=== PATIENT | female | born 1985 | race African-American/Black ===

== ENCOUNTER → 2020-01-29 | Outpatient (CLI) | payer OTHER ==
[~2020-01-29] MED LIST: MELO7.5T3 PO; TIZA4CAP PO; ULTR50TA PO; [UNRECOGNIZED DRUG - CODE] PO
--- NOTE | 2020-02-18 11:44 | REP ---
NECK/THYROID ULTRASOUND: HISTORY: Neck swelling. TECHNIQUE: Real time, rivera scale and color evaluation using linear high frequency and curved array transducers. FINDINGS: The thyroid gland is normal in contour, size and parenchymal echotexture without nodule or cystic changes. The right thyroid lobe measures 4.3 x 1.5 x 1.5 cm. The left thyroid lobe measures 3.8 x 1.5 x 1.3 cm. The isthmus measures 4.2 mm in width. A few scattered mildly prominent right-sided cervical chain lymph nodes are identified which appear normal and demonstrate central fatty hilum and normal vascularity. The lymph nodes measure 14 x 3 x 8 mm, 23 x 3 x 6 mm. Left-sided normal appearing lymph nodes are also identified measuring 12 x 4 x 6 mm and 18 x 5 x 13 mm. IMPRESSION: 1. Normal thyroid gland. 2. Normal mildly prominent-appearing bilateral cervical chain lymph nodes. MTDD
== END ==
LOC: M RAD 10:57
PROVIDERS: ATTEND Physician Assistant Medical
DX: R22.1 Localized swelling, mass and lump, neck (principal)

== ENCOUNTER 2021-03-28 10:14 | Emergency (ER) | payer OTHER ==
[~2021-03-28] VITALS: Ht 160 cm; Wt 75.7 kg
--- OUTSIDE RECORDS SUMMARY | 2021-03-28 10:20 | CCD ---
Author Author [facility] Organization [facility] Address Unknown Phone Unavailable Support Name Relationship Address Phone [facility] Next Of Kin Unknown Unavailable RE Next Of Kin Unknown Unavailable [facility] Next Of Kin [address] [place] [address] [address] Next Of Kin [address] [place], [place] [id number] [place] Next Of Kin Unknown Unavailable Re-disclosure Warning The records that you are about to access may contain information from federally-assisted alcohol or drug abuse programs. If such information is present, then the following federally mandated warning applies: This information has been disclosed to you from records protected by federal confidentiality rules (42 CFR part 2). The federal rules prohibit you from making any further disclosure of this information unless further disclosure is expressly permitted by the written consent of the person to whom it pertains or as otherwise permitted by 42 CFR part 2. A general authorization for the release of medical or other information is NOT sufficient for this purpose. The Federal rules restrict any use of the information to criminally investigate or prosecute any alcohol or drug abuse patient.The records that you are about to access may contain highly sensitive health information, the redisclosure of which is protected by Article 27-F of the [facility] Public Health law. If you continue you may have access to information: Regarding HIV / AIDS; Provided by facilities licensed or operated by the [facility] Office of Mental Health; or Provided by the [facility] Office for People With Developmental Disabilities. If such information is present, then the following [facility] mandated warning applies: This information has been disclosed to you from confidential records which are protected by state law. State law prohibits you from making any further disclosure of this information without the specific written consent of the person to whom it pertains, or as otherwise permitted by law. Any unauthorized further disclosure in violation of state law may result in a fine or detention sentence or both. A general authorization for the release of medical or other information is NOT sufficient authorization for further disc losure. Immunizations Vaccine Date Status Description Data Source(s) COVID-19 VACCINE Moderna 08/31/2020 12:00:00 AM EDT completed [facility] Vaccine Series Complete: YESThis Data wa s Submitted to [facility] Via [employer]. COVID-19 VACCINE Moderna 08/03/2020 12:00:00 AM EST completed [facility] Vaccine Series Complete: NOThis Data was Submitted to [facility] Via [employer]. Medications No Information Insurance Providers Payer name Policy type / Coverage type Policy ID Covered green party ID Covered green party's relationship to is[place] Policy [place] Information [employer] [place] O [id number] S [id number] [employer] [place] CCN [id number] SP [id number] 78 'S ADMINISTRATION [id number] SP [id number] ACTIVE DUTY [id number] SP [id number] SELF PAY UNAVAILABLE SP UNAVAILA BLE Problems, Conditions, and Diagnoses No Information Surgeries/Procedures No Information Results ID Date Data Source [id number] 07/14/2020 11:31:00 AM EST [facility] FASTING: NOReceived: 07/14/2020 at 04:43 :00 QPT: [facility], [facility] [address] , [address] [place], [address], Jarred Thurston MD Name Value Range Interpretation Code Description Data Justine rce(s) Supporting Document(s) Varicella zoster virus IgG Ab [Units/volume] in Serum by Immunoassay 656.80 index Normal (applies to non-numeric results) [facility] Index Interpretatio n --------- <135.00 Negative - Antibody not detected 135.00 - 164.99 Equivocal > or = 165.00 Positive - Antibody detected A positive result indicates that the patient has antibody to VZV but does not differentiate between an active or past infection. The clinical d iagnosis must be interpreted in conjunction with the clinical signs and symptoms of the patient. This assay reliably measures immunity due to previous infection but may not be sensitive enough to detect antibodies induced by vaccination. Thus, a negative result in a vaccinated individual does not necessarily indicate susceptibility to VZV infection. A more sensitive test for vaccination-induced immunity is Varicella Zoster Virus Antibody Immunity Screen, ACIF. ID Date Data Source [id number] 05/07/2020 12:00:00 AM EST [facility] Name Value Range Interpretation Code Description Data Justine rce(s) Supporting Document(s) SARS coronavirus 2 RNA [Presence] in Res piratory specimen by ANA with probe detection [facility] This lab was ordered by Adebayo Luong and reported by [employer]. ID Date Data Source [id number] 03/30/2020 12:00:00 AM EDT [facility] PEDRO Contreras Patient Name: ROMAN [address] [facility] 1985[facility] [address] Date of Exam: 03/30/2020PH#: Fax: [phone] EXAM: CT NECK SOFT TISSUE WITH CONTRASTCLINICAL INFORMATION: Lump in the right side of the neck. Lump present for1 month. An opaque BB is affixed to the skin at the site.CT CONTRAST DOSE: 75 mL of Optiray 320 is administered.FINDINGS: Preliminary digital program project analyst radiographs are unremarkable. Theopaque BB affixed to the skin at the site of the palpable lump is seenoverlying mid-belly of the right sternocleidomastoid muscle. No mass orcyst is seen. There are scattered normal sized lymph nodes in the anteriorcervical chain. Homogenous normal sized thyroid is seen bilaterally.Submandibular and parotid glands are normal and symmetric. There is novisible lipoma or abnormal fluid collection. No glottic or subglotticairway lesion is seen. Tonsilar and paratonsilar soft-tissues areunremarkable. The paranasal sinuses are clear. No intraorbital abnormalityis seen.IMPRESSION:Negative soft-tissue neck CT study. Scattered normal sized cervical lymphnodes. No mass, adenopathy or abnormal cyst is seen.Accredited by the [employer] in [place].LUCA Luna/Manasa you for referring MARCIE KRAUSE to our office. Electronically Signed - CAMERON MARTINEZ MD 03/31/20 16:45 Name Value Range Interpretation Code Description Data Justine rce(s) Supporting Document(s) Procedure Social History No Information
[2021-03-28] MEDS ORDERED: XULA1DIS TOP (10:35)
[2021-03-28] MEDS ORDERED: NAPR220C14 PO (10:35)
[2021-03-28] MEDS ORDERED: ONDANSETRON 4 MG TAB PO ONE (11:25)
[2021-03-28] MEDS ORDERED: ACETAMINOPHEN 325 MG TAB PO ONE (11:25)
[2021-03-28] MEDS ORDERED: NS 1,000 ML IV ONE (11:25)
[2021-03-28 12:15] LABS: BASO # 0.1 10^3/uL (0.0-0.2); BASO % 0.5 % (0.0-1.0); EOS # 0.1 10^3/uL (0.0-0.5); EOS % 0.5 % (0.0-3.0); HEMOGLOBIN 14.1 g/dl (12.0-15.5); LYMPH # 3.5 10^3/uL (1.5-5.0); LYMPH % 33.5 % (24.0-44.0); MEAN CORPUSCULAR HEMOGLOBIN 28.3 pg (27.0-33.0); MEAN CORPUSCULAR HGB CONC 32.8 g/dl (32.0-36.5); MEAN CORPUSCULAR VOLUME 86.3 fl (80.0-96.0); MONO # 0.8 10^3/uL (0.0-0.8); MONO % 7.2 % (2.0-8.0); NEUTROPHILS # 6.1 10^3/uL (1.5-8.5); NEUTROPHILS % 58.1 % (36.0-66.0); PLATELET COUNT, AUTOMATED 282 10^3/uL (150-450); RED BLOOD COUNT 4.98 10^6/uL (4.00-5.40); WHITE BLOOD COUNT 10.5 10^3/uL (4.0-10.0)
--- OUTSIDE RECORDS SUMMARY | 2021-03-28 12:22 | CCD ---
Author Author [facility] Organization [facility] Address Unknown Phone Unavailable Support Name Relationship Address Phone [employer] [facility] Next Of Kin Unknown Unavailable RE Next Of Kin Unknown Unavailable [facility] Next Of Kin [address] [place] [address] [address] Next Of Kin [address] [place], [place] [id number] [place] Next Of Kin Unknown Unavailable Re-disclosure [...] is protected by Article 27-F of the [facility] Public Health law. If you continue you may have access to information: Regarding HIV / AIDS; Provided by facilities licensed or operated by the [facility] Office of Mental Health; or Provided by the [facility] Office for People With Developmental Disabilities. If such information is present, then the following [facility] mandated warning applies: This information has been [...] law may result in a fine or alf sentence or both. A general authorization for the release of medical or other information is NOT sufficient authorization for further disc losure. Immunizations Vaccine Date Status Description Data Source(s) COVID-19 VACCINE Moderna 08/31/2020 12:00:00 AM EDT completed [facility] Vaccine Series Complete: YESThis Data wa s Submitted to [facility] Via [email or web address]. COVID-19 VACCINE Moderna 08/03/2020 12:00:00 AM EST completed [facility] Vaccine Series Complete: NOThis Data was Submitted to [facility] [email or web address]. Medications No Information Insurance Providers Payer name Policy type / Coverage type Policy ID Covered constitution party ID Covered constitution party's relationship to is[place] Policy [place] Plan Information 'S ADMINISTRATION [id number] SP [id number] [employer] [place] O [id number] S [id number] [employer] [place] CCN [id number] SP [id number] ACTIVE DUTY [id number] SP [id number] SELF PAY UNAVAILABLE SP UNAVAILA BLE Problems, Conditions, and Diagnoses No Information Surgeries/Procedures No Information Results ID Date Data Source [id number] 07/14/2020 11:31:00 AM EST [facility] FASTING: NOReceived: 07/14/2020 at 04:43 :00 QPT: [facility], [facility] [address] , [address] [place], [address], Jarred Thurston MD Name Value Range Interpretation [...] Immunity Screen, ACIF. ID Date Data Source [id number] 05/07/2020 12:00:00 AM EST [facility] Name Value Range Interpretation Code Description Data Justine rce(s) Supporting Document(s) SARS coronavirus 2 RNA [Presence] in Res piratory specimen by ANA with probe detection [facility] This lab was ordered by Adebayo Luong and reported by [employer]. ID Date Data Source [id number] 03/30/2020 12:00:00 AM EDT [facility]EDRO [facility]ras Patient Name: ROM[address] [facility] 1985[facility] [address] Date of Exam: 03/30/2020PH#: Fax: [phone] EXAM: CT NECK SOFT TISSUE WITH CONTRASTCLINICAL INFORMATION: Lump in the right side of the neck. Lump present for1 month. An opaque BB is affixed to the skin at the site.CT CONTRAST DOSE: 75 mL of Optiray 320 is administered.FINDINGS: Preliminary digital field artillery senior sergeant radiographs are unremarkable. Theopaque BB affixed to [...] or abnormal cyst is seen.Accredited by the [employer] in [place]LUCA Luna/Manasa you for referring MARCIE KRAUSE to our office. Electronically Signed - CAMERON MARTINEZ MD 03/31/20 16:45 Name Value Range Interpretation Code Description Data Justine rce(s) Supporting Document(s) Procedure Social History No Information
[2021-03-28 12:39] LABS: ALBUMIN 3.7 GM/DL (3.2-5.2); ALT/SGPT 17 U/L (12-78); BILIRUBIN,DIRECT < 0.1 MG/DL (0.0-0.2); BILIRUBIN,TOTAL 0.2 MG/DL (0.2-1.0); LIPASE 50 U/L (73-393); TOTAL PROTEIN 7.5 GM/DL (6.4-8.2)
--- NOTE | 2021-03-28 13:38 | REP ---
INDICATION: pelvic pain on left/bleeding/hx fibroids. COMPARISON: None. TECHNIQUE: Transabdominal and transvaginal scanning performed. FINDINGS: Uterine dimensions are 9.5 x 5.5 x 5.5 cm. The endometrium could not be visualized due to multiple uterine fibroids present. A right uterine fibroid measures 2.2 x 2.1 x 2.5 cm, appearing heterogeneously hyperechoic. More superiorly a right uterine fibroid measures 2.0 x 2.2 x 2.7 cm. In the midline there is a fibroid measuring 3.9 x 3.4 x 3.3 cm. The bladder is empty. The right ovary has dimensions of 2.9 x 1.6 x 2.0 cm. It's Doppler flow is normal with a resistive index of 0.67. The left ovary could not be visualized. There is no adnexal mass identified. No free fluid is seen in the cul-de-sac. IMPRESSION: Fibroid uterus as discussed above. The endometrial echo complex could not be visualized due to extensive shadowing from the fibroids. The right ovary appears normal. The left ovary could not be visualized. No evidence of adnexal mass or free fluid. <Electronically signed by Marvin Ingram > 03/28/21 [id number]
[2021-03-28] MEDS ORDERED: ZOFR4TAB16 PO (14:08)
[2021-03-28 14:16] VITALS: BP 125/70
== END 2021-03-28 14:56 | disposition home or self-care (01) ==
LOC: M ED 10:14
DX: N93.8 Other specified abnormal uterine and vaginal bleeding (principal); D25.9 Leiomyoma of uterus, unspecified; Z79.3 Long term (current) use of hormonal contraceptives

== ENCOUNTER 2021-09-19 06:28 | Emergency (ER) | payer OTHER ==
[~2021-09-19] VITALS: Ht 160 cm; Wt 75.4 kg
[2021-09-19 06:28] VITALS: BP 134/80
[~2021-09-19 06:28] MED LIST changes: +NAPR220C14 PO; +XULA1DIS TOP; +ZOFR4TAB16 PO
== END 2021-09-19 08:19 | disposition home or self-care (01) ==
LOC: M ED 06:28
DX: N93.8 Other specified abnormal uterine and vaginal bleeding (principal); R10.2 Pelvic and perineal pain